=== PATIENT | female | born 1980 | race Caucasian/White ===

== ENCOUNTER 2018-02-27 13:31 | Outpatient (CLI) | payer BC ==
--- NOTE | 2018-02-27 16:56 | MRI ---
CERVICAL SPINE MRI WITHOUT CONTRAST: Date: 02/27/18 HISTORY: Migraines. Neck pain. Symptoms since October. COMPARISON: None. TECHNIQUE: Cervical spine MRI is performed without intravenous Gadolinium administration. Multisequential, multi planar imaging is performed. FINDINGS: Appropriate T1 marrow signal intensity of the cervical vertebra. Cervical spine vertebral body height is maintained. There is no fracture. No significant STIR hyperintensity to suggest vertebral body ed ashlie or ligamentous injury. Straightening of normal cervical lordosis is presumed to be due to positio n. Visualized brain parenchyma, cervicomedullary junction, cervical cord, and the upper thoracic cord salvador ve a normal size and signal intensity. C2-C3: No significant disc osteophyte complex. No significant central canal stenosis. Foramina are p atent. C3-C4: No significant disc osteophyte complex. No significant central canal stenosis. Foramina are p atent. C4-C5: No significant disc osteophyte complex. No significant central canal stenosis. Right neural f oramen is patent. Minimal left foraminal narrowing due to degenerative change in the uncovertebral anahy int. C5-C6: No significant disc osteophyte complex. No significant central canal stenosis. Neural foramin a are patent bilaterally. C6-C7: No significant disc osteophyte complex. No significant central canal stenosis. Neural foramin a are patent bilaterally. C7-T1: No significant central canal stenosis or foraminal narrowing. IMPRESSION: No significant central canal stenosis or foraminal narrowing. POS: [facility]
== END 2018-02-27 13:32 | disposition home or self-care (01) ==
LOC: SCSMRI 13:31
PROVIDERS: ATTEND Psychiatry & Neurology Neurology
DX: M54.2 Cervicalgia (principal); G43.109 Migraine with aura, not intractable, without status migrainosus
CPT/HCPCS: 72141; 72148